=== PATIENT | female | born 1990 | race Caucasian/White ===

== ENCOUNTER 2018-02-19 02:30 | Inpatient (IN) | payer BC ==
[2018-02-19] MEDS ORDERED: LIDOCAINE 0.5% (PF) 5 MG/ML (50 ML SDV) SQ PRN (02:40)
[2018-02-19] MEDS ORDERED: CARBOPROST TROMETHAMINE 250 MCG/ML 1 ML AMP IM PRN (02:40)
[2018-02-19] MEDS ORDERED: TERBUTALINE 1 MG/ML VIAL SQ PRN (02:40)
[2018-02-19] MEDS ORDERED: METHYLERGONOVINE 0.2 MG/ML 1 ML AMP IM PRN (02:40)
[2018-02-19] MEDS ORDERED: OXYTOCIN 10 UNIT/ML 1 ML VIAL IM PRN (02:40)
[2018-02-19] MEDS ORDERED: LACTATED RINGERS 1,000 ML IV SCH (02:45)
[2018-02-19 02:49] LABS: Basophils % (A) 0 %; Eosinophils % (A) 0 %; HCT 34.5 % (34.0-46.0); HGB 11.3 gm/dL (11.4-16.0); Lymphocytes # (A) 1.7 k/uL (1.0-4.8); Lymphocytes % (A) 20 %; MCH 29.1 pg (25.0-35.0); MCHC 32.8 g/dL (31.0-37.0); MCV 88.9 fL (80.0-100.0); Mean Platelet Volume 8.5; Monocytes # (A) 0.4 k/uL (0-1.0); Monocytes % (A) 5 %; Neutrophils # (A) 5.8 k/uL (1.3-7.7); Neutrophils % (A) 72 %; Platelet Count 151 k/uL (150-450); Poikilocytosis Slight; RBC 3.88 m/uL (3.80-5.40); RDW 14.4 % (11.5-15.5); WBC 8.1 k/uL (3.8-10.6)
[2018-02-19] MEDS ORDERED: BUTORPHANOL 1 MG/ML 1 ML VIAL IV PRN (02:56)
--- NOTE | 2018-02-19 03:04 | P.HPOB ---
History of Present Illness H&P Date: 02/19/18 Chief Complaint: 38 and one sevenths weeks, active labor The patient is a 27-year-old 3 para 2002 admitted at 38 and one sevenths weeks by early ultrasound. She is admitted in active labor with all signs reassuring. Her has been uncomplicated though she did fail her second trimester Glucola and passed the 3 hour Glucola to follow-up. Group B strep status is negative. Obstetrical history: 3 para 200-2 term vaginal deliveries without, occasions. Current statistics are listed in history of present illness. EDC of 03/04/2018 was established by ultrasound. Her laboratory workup demonstrates a blood type of O+ with a negative antibody screen. Rubella status is immune. Remainder of laboratory workup was within normal limits. Early Glucola was elevated followed by a normal three-hour glucose tolerance test. Group B strep status is negative. Gynecologic history: Unremarkable with no history of any infections to include STDs. Review of Systems Review of systems is confined to history of present illness. 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 unsure of disease. doesn't take medications unnless absolutely needed r/t hx. History of Any Multi-Drug Resistant Organisms: None Reported Additional Past Surgical History / Comment(s): LEFT ACL Past Anesthesia/Blood Transfusion Reactions: No Reported Reaction Past Psychological History: No Psychological Hx Reported Smoking Status: Never smoker Past Alcohol Use History: Occasional Past Drug Use History: None Reported - Past Family History Father Family Medical History: No Reported History Medications and Allergies Home Medications Medication Instructions Recorded Confirmed Type No Known Home Medications 02/19/18 02/19/18 History Allergies Allergy/AdvReac Type Severity Reaction Status Date / Time No Known Allergies Allergy Verified 02/19/18 02:40 Exam Intake and Output 02/18/18 02/18/18 02/19/18 14:59 22:59 06:59 Other: Weight 81.647 kg In general, this is a well-developed, well-nourished white female in significant discomfort as she is in active labor. Her heart has a regular rhythm and rate without murmur. Her lungs are clear to auscultation bilaterally in all [place]. Her abdomen is gravid, nondistended, has normal active bowel sounds, is soft, nontender, without any palpable masses aside from uterine fundus. Her extremities are without any cyanosis, clubbing, or significant edema and are nontender to palpation bilaterally. Digital cervical examination demonstrates her cervix most recently to be approximately 9 cm dilated, 100% effaced, with the vertex in presentation at -1 station. Spontaneous rupture of membranes is apparent. Results Result Diagrams: 02/19/18 02:39 Abnormal Lab Results - Last 24 Hours (Table) 02/19/18 Range/Units 02:39 Hgb 11.3 L (11.4-16.0) gm/dL Assessment and Plan (1) Active labor at term Current Visit: Yes Status: Acute Code(s): KMF0104 - SNOMED Code(s): 17665758 Plan: The patient is admitted for close maternal and surveillance and expectant management will be practiced. She is too far progressed for an epidural catheter but is still a candidate for IV analgesia should she choose. Normal vaginal delivery will be anticipated.
[2018-02-19] MEDS ORDERED: ZOLPIDEM 5 MG TAB PO PRN (03:37)
[2018-02-19] MEDS ORDERED: ACETAMINOPHEN TAB 325 MG TAB PO PRN (03:37)
[2018-02-19] MEDS ORDERED: diphenhydrAMINE 25 MG CAP PO PRN (03:37)
[2018-02-19] MEDS ORDERED: WITCH HAZEL 1 EACH MED..PAD TOPICAL PRN (03:37)
[2018-02-19] MEDS ORDERED: diphenhydrAMINE 50 MG/ML 1 ML VIAL IVP PRN ×2 (03:37)
[2018-02-19] MEDS ORDERED: LANOLIN CREAM 5 GM TUBE TOPICAL PRN (03:37)
[2018-02-19] MEDS ORDERED: HYDROCORTISONE 2.5% RECTAL CREAM 30 GM TUBE RECTAL PRN (03:37)
[2018-02-19] MEDS ORDERED: BENZOCAINE/MENTHOL SPRAY 1 GM/SPRAY AEROSOL TOPICAL PRN (03:37)
[2018-02-19] MEDS ORDERED: SIMETHICONE 80 MG CHEWABLE PO PRN (03:37)
[2018-02-19] MEDS ORDERED: diphenhydrAMINE 50 MG CAP PO PRN (03:37)
--- NOTE | 2018-02-19 03:41 | P.PROBDLV ---
Vaginal Delivery Note - . Vaginal Delivery Note: This is a 27-year-old 3 para 2001 at 38 and one sevenths weeks that presented to labor and delivery with complaints of spontaneous rupture of membranes and regular strong contractions. On initial physical exam she was 8 cm dilated and grossly ruptured. Patient was admitted to labor and delivery patient progressed to complete with excellent maternal effort she had a normal spontaneous vaginal delivery of a viable female at 313, weight of 7 lbs. 7 oz. with Apgars 9 and 9 at one and 5 minutes respectively. Afterwards the placenta was delivered spontaneously intact with a three-vessel cord noted. On inspection the patient's vaginal vault a small vaginal laceration, first-degree was noted and repaired in the usual fashion with 3-0 Rapide. Afterwards the inspection of the vaginal vault revealed no further lacerations. The uterus was noted to be firm and below the umbilicus. A rectal exam was performed and normal in nature. Next Patient and tolerated delivery well and are resting comfortably.
[2018-02-19] MEDS ORDERED: OXYTOCIN 20 UNITS/1000 ML NS 1,000 ML IV SCH (03:45)
[2018-02-19] MEDS: IBUPROFEN 600 MG TAB PO PRN ×3 (04:24→21:13)
[2018-02-19 04:58] VITALS: BMI 30.9
[2018-02-19 05:14] VITALS: RESP 16
[2018-02-19] MEDS: SENNOSIDES-DOCUSATE SODIUM 1 EACH TAB PO SCH ×2 (10:42→22:47)
[2018-02-20 08:14] VITALS: BP 131/69; PULSE 70; TEMP 98.4
--- NOTE | 2018-02-20 08:25 | P.DS ---
Providers Date of admission: 02/19/18 02:35 Expected date of discharge: 02/20/18 Attending physician: Antoine Fink Primary care physician: Stated None - Discharge Diagnosis(es) (1) Active labor at term Current Visit: Yes Status: Acute (2) Normal spontaneous vaginal delivery Current Visit: No Status: Acute (3) Perineal laceration during delivery Current Visit: No Status: Acute (4) Term Current Visit: No Status: Acute Hospital Course: This is a 27-year-old 3 para 2001 at 38 and one sevenths weeks that presented to labor and delivery on with complaints of spontaneous rupture of membranes and regular strong contractions. She was noted to be 8 cm dilated and quickly progressed to complete and had a normal spontaneous vaginal delivery of a viable female at 313, weight of 7 lbs. 7 oz. with Apgars of 9 and 9 at one and 5 minutes respectively. Patient did sustain a first- degree vaginal laceration which was repaired in the usual fashion. Next course is been about uneventful. She is ambulating and voiding without difficulty she is tolerating a regular diet without nausea or vomiting she is breast-feeding with some difficulty and wishes a pump rx at discharge. Lochia is noted to be moderate. Patient Condition at Discharge: Good Plan - Discharge Summary New Discharge Prescriptions: No Action No Known Home Medications Discharge Medication List No Known Home Medications 02/19/18 [History] Follow up Appointment(s)/Referral(s): Brenna Anderson DO [Doctor of Osteopathic Medicine] - 1 Week Patient Instructions/Handouts: Vaginal Delivery (DC), Vaginal Delivery (GEN) Discharge Disposition: HOME SELF-CARE
== END 2018-02-20 11:30 | disposition home or self-care (01) | DRG 775 ==
LOC: FBPOP 02:30 → 4FBP 02:35
PROVIDERS: ADMIT Obstetrics & Gynecology; ATTEND Obstetrics & Gynecology
PROC: 10E0XZZ Delivery of Products of Conception, External Approach (ICD-10-PCS; principal; 2018-02-19)
PROC: 0HQ9XZZ Repair Perineum Skin, External Approach (ICD-10-PCS; 2018-02-19)
DX: O70.0 First degree perineal laceration during delivery (principal); Z37.0 Single live birth; Z3A.38 38 weeks gestation of pregnancy; Z87.19 Personal history of other diseases of the digestive system
CPT/HCPCS: 85025; 86850; 86900; 86901

== ENCOUNTER → 2019-07-28 | Outpatient (CLI) | payer BC ==
[2019-07-28 12:26] LABS: HCT 41.1 % (34.0-46.0); MCH 32.1 pg (25.0-35.0); MCV 94.6 fL (80.0-100.0); Mean Platelet Volume 8.2; Platelet Count 193 k/uL (150-450); RBC 4.34 m/uL (3.80-5.40); RDW 12.2 % (11.5-15.5); WBC 6.1 k/uL (3.8-10.6)
== END | disposition home or self-care (01) ==
LOC: LABWHC1 11:07
PROVIDERS: ATTEND Obstetrics & Gynecology Obstetrics
DX: O02.1 Missed abortion (principal)
CPT/HCPCS: 36415; 84702; 85027

== ENCOUNTER 2022-04-09 22:20 | Emergency (ER) | payer OTHER, BC ==
[2022-04-09 22:50] VITALS: BP 124/72; PULSE 104; RESP 20; TEMP 98.7
[2022-04-09] MEDS ORDERED: SODIUM CHLORIDE 0.9% 1,000 ML IV STA (22:53)
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
[2022-04-09 23:31] LABS: Appearance,Urine Cloudy (Clear); Bacteria,Urine Many /hpf; Bilirubin,Urine Negative (Negative); Blood,Urine Trace (Negative); Color,Urine Light Yellow; Glucose,Urine (UA) Negative (Negative); Ketones,Urine Negative (Negative); Leukocyte Esterase,Urine Large (Negative); Nitrite,Urine Negative (Negative); PH, Urine 5.5 (5.0-8.0); Protein,Urine Negative (Negative); RBC,Urine 5 /hpf (0-5); Specific Gravity,Urine 1.005 (1.001-1.035); Squamous Epithelial Cell,Urine 3 /hpf (0-4); Urobilinogen,Urine <2.0 mg/dL (<2.0); WBC,Urine 21 /hpf (0-5)
[2022-04-09 23:34] LABS: Basophils % (A) 0 %; Eosinophils % (A) 0 %; HCT 34.7 % (34.0-46.0); HGB 12.5 gm/dL (11.4-16.0); Lymphocytes # (A) 1.4 k/uL (1.0-4.8); Lymphocytes % (A) 13 %; MCH 32.8 pg (25.0-35.0); MCHC 36.1 g/dL (31.0-37.0); MCV 90.9 fL (80.0-100.0); Mean Platelet Volume 9.1; Monocytes # (A) 0.3 k/uL (0-1.0); Monocytes % (A) 3 %; Neutrophils # (A) 8.6 k/uL (1.3-7.7); Neutrophils % (A) 82 %; Platelet Count 182 k/uL (150-450); RBC 3.82 m/uL (3.80-5.40); RDW 14.4 % (11.5-15.5); WBC 10.4 k/uL (3.8-10.6)
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
[2022-04-09 23:45] LABS: ALT 25 U/L (4-34); AST 24 U/L (14-36); African American GFR (CKD) >90 (>60 ml/min/1.73 sqM); Albumin 4.2 g/dL (3.5-5.0); Alkaline Phosphatase 66 U/L (38-126); Amylase 44 U/L (30-110); Anion Gap 7 mmol/L; Blood Urea Nitrogen 4 mg/dL (7-17); Calcium 9.2 mg/dL (8.4-10.2); Carbon Dioxide 24 mmol/L (22-30); Chloride 105 mmol/L (98-107); Glucose 99 mg/dL (74-99); Lipase 51 U/L (23-300); Non-African American GFR(CKD) >90 (>60 ml/min/1.73 sqM); Potassium 4.1 mmol/L (3.5-5.1); Sodium 136 mmol/L (137-145); Total Bilirubin 0.4 mg/dL (0.2-1.3); Total Protein 6.8 g/dL (6.3-8.2)
[2022-04-09 23:50] LABS: INR 0.9 (<1.2); Partial Thromboplastin Time 22.5 sec (22.0-30.0); Prothrombin Time 9.8 sec (9.0-12.0)
[2022-04-10 00:01] LABS: HCG,Quantitative Serum 8903.2 mIU/mL
== END 2022-04-10 00:01 | disposition home or self-care (01) ==
LOC: EC 22:20
DX: O26.892 Other specified pregnancy related conditions, second trimester (principal); R10.9 Unspecified abdominal pain; Z3A.21 21 weeks gestation of pregnancy; V89.2XXA Person injured in unspecified motor-vehicle accident, traffic, initial encounter
CPT/HCPCS: 36415; 76805; 80053; 81001; 82150; 83690; 84702; 85025; 85610; 85730; 96360; 99284

== ENCOUNTER 2022-04-10 00:01 | Outpatient (CLI) | payer BC ==
[2022-04-10 02:12] VITALS: BP 116/63; PULSE 83; RESP 18; TEMP 98
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
== END 2022-04-10 00:35 | disposition home or self-care (01) ==
LOC: FBPOP 00:01
PROVIDERS: ATTEND Obstetrics & Gynecology
DX: O26.892 Other specified pregnancy related conditions, second trimester (principal); Z3A.20 20 weeks gestation of pregnancy; O71.9 Obstetric trauma, unspecified
CPT/HCPCS: 99213

== ENCOUNTER 2022-08-09 06:00 | Inpatient (IN) | payer BC ==
[2022-08-09] MEDS ORDERED: TERBUTALINE 1 MG/ML VIAL SQ PRN (06:36)
[2022-08-09] MEDS ORDERED: LIDOCAINE 0.5% (PF) 5 MG/ML (50 ML SDV) SQ PRN (06:36)
[2022-08-09 06:41] LABS: Glucose,Whole Blood 133 mg/dL (70-110)
[2022-08-09] MEDS ORDERED: OXYTOCIN 30 UNITS/500 ML NS 30 UNIT in SALINE 1 500ML.BAG IV SCH ×2 (06:45→11:00)
[2022-08-09] MEDS: LACTATED RINGERS 1,000 ML IV SCH ×2 (06:51→16:05)
[2022-08-09 07:22] LABS: Basophils % (A) 0 %; Eosinophils % (A) 0 %; HCT 30.5 % (34.0-46.0); HGB 10.6 gm/dL (11.4-16.0); Hyperchromasia Slight; Lymphocytes # (A) 1.4 k/uL (1.0-4.8); Lymphocytes % (A) 22 %; MCH 30.7 pg (25.0-35.0); MCHC 34.7 g/dL (31.0-37.0); MCV 88.5 fL (80.0-100.0); Mean Platelet Volume 9.9; Monocytes # (A) 0.3 k/uL (0-1.0); Monocytes % (A) 4 %; Neutrophils # (A) 4.4 k/uL (1.3-7.7); Neutrophils % (A) 70 %; Platelet Count 139 k/uL (150-450); Poikilocytosis Moderate; RBC 3.44 m/uL (3.80-5.40); WBC 6.4 k/uL (3.8-10.6)
[2022-08-09] MEDS ORDERED: ZOLPIDEM 5 MG TAB PO PRN (10:49)
[2022-08-09] MEDS ORDERED: BENZOCAINE/MENTHOL SPRAY 1 GM/SPRAY AEROSOL TOPICAL PRN (10:49)
[2022-08-09] MEDS ORDERED: SIMETHICONE 80 MG CHEWABLE PO PRN (10:49)
[2022-08-09] MEDS ORDERED: diphenhydrAMINE 50 MG CAP PO PRN (10:49)
[2022-08-09] MEDS ORDERED: diphenhydrAMINE 25 MG CAP PO PRN (10:49)
[2022-08-09] MEDS ORDERED: ACETAMINOPHEN TAB 325 MG TAB PO PRN (10:49)
[2022-08-09] MEDS ORDERED: LANOLIN CREAM 5 GM TUBE TOPICAL PRN (10:49)
[2022-08-09] MEDS ORDERED: diphenhydrAMINE 50 MG/ML 1 ML VIAL IVP PRN ×2 (10:49)
[2022-08-09] MEDS ORDERED: HYDROCORTISONE 2.5% RECTAL CREAM 30 GM TUBE RECTAL PRN (10:49)
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
--- NOTE | 2022-08-09 10:54 | P.PROBDLV ---
Vaginal Delivery Note - . Vaginal Delivery Note: This is a 32-year-old 013 at 30 0/7 weeks that presents to labor and delivery for induction of labor. Patient has had intermittent/interrupted care secondary to issues with childcare. Patient just recently did her gestational diabetes screen and had an abnormal result of 174. Given patient has had gestational diabetes with prior pregnancies a diagnosis of gestational diabetes is given to this patient. Ultrasound was completed revealing a large for gestational age baby with a weight of 8 lbs. 4 oz., the 99th percentile head circumference and abdominal circumference. Patient was counseled on induction of labor secondary to LGA and GDM diagnosis. Patient agreed. Patient was admitted to labor and delivery where Pitocin induction of labor was begun. Amniotomy is performed and clear fluid was obtained. I do suspect patient was in early latent labor as she was 5-6 cm upon rupture of membranes. Patient progressed quickly through labor using nitrous for pain control. Patient progressed to complete began pushing and had a normal spontaneous vaginal delivery of a viable male at 1027, weight of 8 lbs. 13 oz., Apgars of 9 and 9 at one and 5 minutes respectively. After two-minute delayed the umbilical cord was doubly clamped and cut. The placenta was delivered spontaneously intact with a three-vessel cord being noted. On inspection the patient's vaginal vault a first-degree vaginal laceration was appreciated. This was injected with lidocaine and repaired in usual fashion with 3-0 Rapide. The uterus was noted be firm and below the umbilicus. A straight blood loss 150 mL. Patient and infant tolerated delivery well and are resting comfortably. All counts were noted to be correct 2 at the negative the delivery.
[2022-08-09] MEDS: IBUPROFEN 600 MG TAB PO SCH ×2 (11:17→16:57)
[2022-08-09] MEDS ORDERED: MEASLES-MUMPS-RUBELLA VACC/PF 12,500 UNIT/0.5 ML VIAL SQ ONE (11:40)
[2022-08-09] MEDS ORDERED: SENNOSIDES-DOCUSATE SODIUM 1 EACH TAB PO SCH (20:00)
[2022-08-10] MEDS: IBUPROFEN 600 MG TAB PO SCH ×2 (00:31→14:14)
[2022-08-10 04:04] VITALS: RESP 16
[2022-08-10 08:05] VITALS: BP 119/67; PULSE 80; TEMP 98
[2022-08-10] MEDS ORDERED: PRENATAL VIT-IRON-FOLIC ACID 1 EACH TABLET PO SCH (09:00)
--- NOTE | 2022-08-10 09:46 | P.DS ---
Providers Date of admission: 08/09/22 06:18 Expected date of discharge: 08/10/22 Attending physician: Brenna Anderson Primary care physician: Stated None - Discharge Diagnosis(es) (1) Gestational diabetes Current Visit: No Status: Acute (2) Term Current Visit: No Status: Acute (3) Normal spontaneous vaginal delivery Current Visit: No Status: Acute (4) Perineal laceration during delivery Current Visit: No Status: Acute Hospital Course: This is a 32-year-old G5 now P4 014 that presented to labor and delivery at 38- 0/7 weeks for induction of labor. Patient states she had been nic through the evening. Patient was noted to be 5-6 cm upon initial exam. I do suspect she was in early latent labor. Patient had been intermittent/ interrupted care secondary to childcare issues. Patient recently did her gestational diabetes screen at 36 weeks with an abnormal result of 174. Patient does have a history of gestational diabetes with a prior therefore was diagnosed with gestational diabetes with this current . Ultrasound confirming large for gestational age in addition. Patient was counseled on induction of labor and she agreed. Patient was admitted and Pitocin augmentation of labor was begun. Amniotomy was performed and clear fluid was obtained. Patient requested nitrous for pain control. Patient progressed quickly to complete began pushing and had a normal spontaneous vaginal delivery of a viable male weight of 8 lbs. 4 oz., Apgars of 9 and 9 at one and 5 minutes respectively. Patient did sustain a first 3 vaginal laceration during delivery, this was repaired in the usual fashion with 3-0 repeat. Patient's course has been uneventful. On this day #1 she is ambulating and voiding without difficulty. She is tolerating a regular diet without nausea or vomiting. She states her pain is well- controlled. She denies concerns and would like discharge home today. Patient Condition at Discharge: Good Plan - Discharge Summary New Discharge Prescriptions: No Action Vit No.179/Iron/Folic [ Tablet] 1 each PO DAILY Discharge Medication List Vit No.179/Iron/Folic [ Tablet] 1 each PO DAILY 04/10/22 [History] Follow up Appointment(s)/Referral(s): Brenna Anderson DO [Doctor of Osteopathic Medicine] - 4 Weeks Patient Instructions/Handouts: Vaginal Delivery (GEN), Vaginal Delivery (DC) Activity/Diet/Wound Care/Special Instructions: No tub baths or intercourse until 6 weeks . Bleeding precautions are reviewed. Patient is counseled on need for routine check 4 weeks. Should she have any concerns prior to this appointment she is urged to call the office. Discharge Disposition: HOME SELF-CARE
== END 2022-08-10 14:20 | disposition home or self-care (01) | DRG 807 ==
LOC: 4FBP 06:18
PROVIDERS: ADMIT Obstetrics & Gynecology Obstetrics; ATTEND Obstetrics & Gynecology Obstetrics
PROC: 10E0XZZ Delivery of Products of Conception, External Approach (ICD-10-PCS; principal; 2022-08-09)
PROC: 0HQ9XZZ Repair Perineum Skin, External Approach (ICD-10-PCS; principal; 2022-08-09)
DX: O24.429 Gestational diabetes mellitus in childbirth, unspecified control (principal); Z37.0 Single live birth; O36.63X0 Maternal care for excessive fetal growth, third trimester, not applicable or unspecified; O70.0 First degree perineal laceration during delivery; Z3A.38 38 weeks gestation of pregnancy; Z87.891 Personal history of nicotine dependence; Z28.310 Unvaccinated for COVID-19; Z28.21 Immunization not carried out because of patient refusal
CPT/HCPCS: 85025; 86850; 86900; 86901